=== PATIENT | male | born 1955 | race Caucasian/White ===

== ENCOUNTER → 2016-11-03 | Outpatient (CLI) | payer BC ==
--- NOTE | 2016-11-03 19:22 | PCVCIMAG ---
APPROVED REPORT Study performed: 11/03/2016 15:13:25 EXAM: Comprehensive 2D, Doppler, and color-flow Echocardiogram Status: routine Other Information Study Quality: Technically Limited Indications Hypertension/HDD Cardiomyopathy, 2D Dimensions IVSd: 9.79 (7-11mm)LVOT Diam: 25.30 (18-24mm) LVDd: 68.34 mm PWd: 10.04 (7-11mm)Ascending Ao: 38.92 (22-36mm) LVDs: 66.45 (25-40mm) Left Atrium: 38.20 (27-40mm) Aortic Root: 32.87 mm LV Single Plane 4CH: 45.38 % LV Single Plane 2CH: 39.62 %Vega's LVEF: 42.50 % Volumes Left Atrial Volume (Systole) Single Plane 4CH: 88.00 mLSingle Plane 2CH: 67.30 mL LA ESV Index: 34.00 mL/m2 Aortic Valve AoV Peak Derick.: 1.27 m/s AO Peak Gr.: 6.45 mmHgLVOT Max P.46 mmHg LVOT Max V: 0.93 m/s KADI Vmax: 3.68 cm2 Mitral Valve E/A Ratio: 0.6 MV Decel. Time: 468.26 ms MV E Max Derick.: 0.59 m/s MV A Derick.: 0.93 m/s MV PHT: 135.80 ms IVRT: 107.27 ms Left Ventricle The left ventricle is dilated. There is normal LV segmental wall motion. There is normal left ventricular wall thickness. Left ventricular systolic function is reduced. LVEF is 30- 35% Right Ventricle The right ventricle is normal size. The right ventricular systolic function is normal. Atria The left atrium size is normal. The right atrium size is normal. Aortic Valve The aortic valve is normal in structure. No aortic regurgitation is present. There is no aortic valvular stenosis. Mitral Valve The mitral valve is normal in structure. Trace to mild mitral regurgitation. No evidence of mitral valve stenosis. Tricuspid Valve The tricuspid valve is normal in structure. There is no tricuspid valve regurgitation noted. Pulmonic Valve The pulmonary valve is normal in structure. There is no pulmonic valvular regurgitation. Great Vessels The aortic root is normal in size. IVC is normal in size and collapses with >50% inspiration Pericardium There is no pericardial effusion. <Conclusion> Left ventricular systolic function is reduced. Left ventricular systolic function is reduced. The left ventricle is dilated. There is normal left ventricular wall thickness. Left ventricular systolic function is reduced. LVEF is 30- 35% The right ventricle is normal size. The left atrium size is normal. The aortic valve is normal in structure. Trace to mild mitral regurgitation. There is no tricuspid valve regurgitation noted. There is no pericardial effusion.
== END | disposition home or self-care (01) ==
LOC: PCVCIMAG 14:56
PROVIDERS: ATTEND Internal Medicine Cardiovascular Disease
DX: I34.0 Nonrheumatic mitral (valve) insufficiency (principal); I10 Essential (primary) hypertension; E78.5 Hyperlipidemia, unspecified; I42.9 Cardiomyopathy, unspecified; E78.4 Other hyperlipidemia; I51.7 Cardiomegaly; Z79.82 Long term (current) use of aspirin; Z79.899 Other long term (current) drug therapy; Z88.8 Allergy status to other drugs, medicaments and biological substances
CPT/HCPCS: 80061; 93005; 93306; G0463

== ENCOUNTER → 2016-11-17 | Outpatient (CLI) | payer BC ==
[~2016-11-17] MED LIST: DIAZEPAM 10 MG TABLET. ONE; HEPARIN SODIUM 5,000 UNIT/ML VIAL for PCVC. ONE; IODIXANOL 270 MG/ML 100 ML VIAL. ONE; IOHEXOL 350 MG/ML 100 ML VIAL. ONE; IOHEXOL 350 MG/ML 50 ML VIAL. ONE; IV NORMAL SALINE 1000ML BAG 1,000 ML ONE; LIDOCAINE 1% Multi-Dose 20 ML VIAL. ONE; MIDAZOLAM HCL/PF 2 MG/2 ML VIAL. ONE; fentaNYL PF VIAL 100 MCG/2 ML VIAL ONE; hydrALAZINE 20 MG/ML VIAL. ONE
--- NOTE | 2016-11-17 11:31 | PCVCINTER ---
EXAM: 1. AORTOGRAM AND BILATERAL ILIOFEMORAL ANGIOGRAPHY 2. BILATERAL RENAL ANGIOGRAPHY 3. PLACEMENT OF RIGHT COMMON FEMORAL VEIN SHEATH USING ULTRASOUND AND FLUOROSCOPIC GUIDANCE. INDICATION: Hypertension. Renal atherosclerosis. Peripheral arterial disease. PROCEDURE: Procedure and risks of the procedures listed above were discussed with the patient and consent obtained. Risks including but not limited to bleeding, infection, stroke, vascular injury, neurologic injury, embolization, allergic reactions, bowel ischemia requiring resection, and contrast-induced nephropathy requiring dialysis were discussed as appropriate and consent obtained. Patient was placed on the angiography table. IV conscious sedation was utilized with appropriate monitoring for 90 minutes. The right groin was prepped and draped in the normal sterile fashion. Ultrasound was used to interrogate the right groin and demonstrate the right common femoral artery. An ultrasound image was saved. Under ultrasound guidance a 21 gauge needle was used to gain access into the right common femoral artery and a 5F vascular sheath was placed. Next ultrasound guidance access was gated to the right common femoral vein and the 7 [place] sheath placed for the right heart catheter by Dr. Rangel later today. Catheter was placed into the suprarenal abdominal aorta and abdominal aortic angiogram performed. Catheter was placed into the distal abdominal aorta and bilateral iliofemoral angiography performed. Catheter was placed into the right renal arteries and right renal angiograms performed. Catheter was placed into the left renal arteries and left renal angiograms performed. Dr. Rangel joined the procedure and he performed coronary angiography. Please see his separate dictation for details. Catheters and wires removed. Sheath was removed and hemostasis obtained using the Mynx device. No immediate complications. FINDINGS: Aortogram: There is one right and one left renal artery. The infrarenal abdominal aorta shows minimal plaque without significant stenosis or aneurysm. Bilateral iliofemoral angiography: The right and left common and external iliac arteries are patent. Both internal iliac arteries are patent. The right and left common femoral and profunda femoral arteries are patent. The visualized portions of the upper superficial femoral arteries are also patent. Right renal artery: Minimal plaque proximal vessel does not cause significant stenosis. No branch vessel stenosis. Left renal artery: Mild plaque proximal vessel does not cause significant stenosis. No branch vessel stenosis. IMPRESSION: No renal artery stenosis. No aortic or iliofemoral stenosis. follow up LOC:[place] [id number]
== END | disposition home or self-care (01) ==
LOC: PCVCINTER 09:14
PROVIDERS: ATTEND Internal Medicine Cardiovascular Disease
DX: I70.0 Atherosclerosis of aorta (principal); I73.9 Peripheral vascular disease, unspecified; I10 Essential (primary) hypertension; I70.1 Atherosclerosis of renal artery
CPT/HCPCS: 36252; 75630; 76937; 93460; 99152; 99153; C1751; C1760; C1769; C1894; J2250; J3010; J7030; Q9967; J0360; J0690; J1644

== ENCOUNTER → 2017-02-19 | Outpatient (CLI) | payer BC ==
--- NOTE | 2017-02-19 14:11 | PCVCIMAG ---
APPROVED REPORT Study performed: 02/19/2017 09:33:31 EXAM: Comprehensive 2D, Doppler, and color-flow Echocardiogram Patient Location: Echo lab BSA: 2.32 HR: 45 bpmBP: 120/86 mmHg Rhythm: Bradycardia Other Information Study Quality: Adequate Risk Factors: Cardiac Risk Factors: HTN Indications Dyspnea Cardiomyopathy 2D Dimensions LVEF(%): 34.61 (>50%) IVSd: 10.97 (7-11mm) LVDd: 60.70 mm PWd: 10.76 (7-11mm) LVDs: 50.47 (25-40mm) Left Atrium: 45.58 (27-40mm) Aortic Root: 36.10 mm LV Single Plane 4CH: 37.49 % LV Single Plane 2CH: 42.80 %Vega's LVEF: 40.15 % Volumes Left Atrial Volume (Systole) Single Plane 4CH: 86.11 mLSingle Plane 2CH: 102.89 mL LA ESV Index: 41.00 mL/m2 Aortic Valve AoV Peak Derick.: 1.51 m/s AO Peak Gr.: 9.15 mmHgLVOT Max P.30 mmHg LVOT Max V: 1.15 m/s Mitral Valve E/A Ratio: 2.4 MV Decel. Time: 298.37 ms MV E Max Derick.: 0.61 m/s MV A Derick.: 0.25 m/s IVRT: 114.19 ms Pulmonary Valve PV Peak Derick.: 0.85 m/sPV Peak Gr.: 2.92 mmHg Pulmonary Vein P Vein S: 0.23 m/sP Vein A: 0.32 m/s P Vein D: 0.33 m/sP Vein A Dur.: 131.5 msec P Vein S/D Ratio: 0.70 Tricuspid Valve TR Peak Derick.: 2.48 m/s TR Peak Gr.: 24.63 mmHg Left Ventricle Mildly dilated left ventricle. There is normal LV segmental wall motion. There is normal left ventricular wall thickness. Left ventricular systolic function is mild to moderately decreased. LVEF is 35-40%. Grade I - abnormal relaxation pattern. Right Ventricle The right ventricle is normal size. The right ventricular systolic function is normal. Atria Left atrium is moderately dilated. The right atrium size is normal. Aortic Valve The aortic valve is normal in structure. No aortic regurgitation is present. There is no aortic valvular stenosis. Mitral Valve The mitral valve is normal in structure. Mild mitral regurgitation. No evidence of mitral valve stenosis. Tricuspid Valve The tricuspid valve is normal in structure. Mild tricuspid regurgitation with PAP of 32 mmHg. Pulmonic Valve The pulmonary valve is normal in structure. Mild pulmonic regurgitation. Great Vessels The aortic root is normal in size. IVC is normal in size and collapses with >50% inspiration Pericardium There is no pericardial effusion. <Conclusion> Mildly dilated left ventricle. Left ventricular systolic function is mild to moderately decreased. LVEF is 35-40%. Grade I - abnormal relaxation pattern. The right ventricle is normal size. Left atrium is moderately dilated. The right atrium size is normal. There is no aortic valvular stenosis. Mild mitral regurgitation. Mild tricuspid regurgitation with PAP of 32 mmHg. There is no pericardial effusion.
== END | disposition home or self-care (01) ==
LOC: PCVCIMAG 09:32
PROVIDERS: ATTEND Internal Medicine Cardiovascular Disease
DX: I08.1 Rheumatic disorders of both mitral and tricuspid valves (principal); I10 Essential (primary) hypertension; I42.8 Other cardiomyopathies; G47.33 Obstructive sleep apnea (adult) (pediatric); E78.00 Pure hypercholesterolemia, unspecified; R00.1 Bradycardia, unspecified; Z79.82 Long term (current) use of aspirin; Z79.899 Other long term (current) drug therapy; Z88.8 Allergy status to other drugs, medicaments and biological substances
CPT/HCPCS: 93306; G0463

== ENCOUNTER → 2017-11-22 | Outpatient (CLI) | payer BC | END | disposition home or self-care (01) | LOC: PCVCIMAG 16:13 | DX: I25.10 Atherosclerotic heart disease of native coronary artery without angina pectoris (principal); I42.9 Cardiomyopathy, unspecified; I10 Essential (primary) hypertension; E78.5 Hyperlipidemia, unspecified; I07.1 Rheumatic tricuspid insufficiency; I37.1 Nonrheumatic pulmonary valve insufficiency | CPT/HCPCS: 93306 ==

== ENCOUNTER → 2017-11-24 | Outpatient (CLI) | payer BC | END | disposition home or self-care (01) | LOC: PCVCIMAG 13:03 | DX: N13.30 Unspecified hydronephrosis (principal); N20.0 Calculus of kidney; N28.89 Other specified disorders of kidney and ureter; N28.1 Cyst of kidney, acquired | CPT/HCPCS: 76770 ==

== ENCOUNTER → 2018-04-06 | Outpatient (CLI) | payer BC | END | disposition home or self-care (01) | LOC: PCVCIMAG 13:51 | PROVIDERS: ATTEND Internal Medicine Cardiovascular Disease | DX: I35.8 Other nonrheumatic aortic valve disorders (principal); I51.7 Cardiomegaly; I42.9 Cardiomyopathy, unspecified; I10 Essential (primary) hypertension; E78.5 Hyperlipidemia, unspecified | CPT/HCPCS: 93308 ==

== ENCOUNTER → 2019-04-17 | Outpatient (CLI) | payer BC ==
--- NOTE | 2019-04-18 13:32 | PCVCIMAG ---
APPROVED REPORT Study performed: 04/17/2019 14:06:39 EXAM: Comprehensive 2D, Doppler, and color-flow Echocardiogram Patient Location: Echo lab Status: routine BSA: 2.36 HR: 49 bpmBP: 150/94 mmHg Rhythm: Bradycardia Other Information Study Quality: Adequate Risk Factors: Cardiac Risk Factors: HTN Indications CAD Nonischemic cardiomyopathy 2D Dimensions IVSd: 11.09 (7-11mm) LVDd: 56.55 mm PWd: 11.09 (7-11mm)Ascending Ao: 36.72 (22-36mm) LVDs: 48.97 (25-40mm) Left Atrium: 42.01 (27-40mm) Aortic Root: 36.05 mm LV Single Plane 4CH: 43.98 % LV Single Plane 2CH: 49.88 % Biplane EF: 46.6 % Volumes Left Atrial Volume (Systole) Single Plane 4CH: 100.67 mLSingle Plane 2CH: 107.29 mL LA ESV Index: 45.00 mL/m2 Aortic Valve AoV Peak Derick.: 1.42 m/s AO Peak Gr.: 8.09 mmHgLVOT Max P.67 mmHg LVOT Max V: 1.06 m/s Mitral Valve E/A Ratio: 2.4 MV Decel. Time: 235.50 ms MV E Max Derick.: 0.67 m/s MV A Derick.: 0.28 m/s IVRT: 166.09 ms Pulmonary Valve PV Peak Derick.: 0.83 m/sPV Peak Gr.: 2.73 mmHg Pulmonary Vein P Vein S: 0.37 m/sP Vein A: 0.29 m/s P Vein D: 0.48 m/sP Vein A Dur.: 117.6 msec P Vein S/D Ratio: 0.77 Tricuspid Valve TR Peak Derick.: 2.61 m/s TR Peak Gr.: 27.22 mmHg Left Ventricle Left ventricle is borderline dilated. There is normal LV segmental wall motion. There is normal left ventricular wall thickness. Left ventricular systolic function is mildly decreased globally. LVEF is 45-50%. Grade I - abnormal relaxation pattern. Right Ventricle The right ventricle is normal size. The right ventricular systolic function is normal. Atria Left atrium is moderately dilated. Right atrium is mildly dilated. Aortic Valve The aortic valve is normal in structure. No aortic regurgitation is present. There is no aortic valvular stenosis. Mitral Valve The mitral valve is normal in structure. Mild mitral regurgitation. No evidence of mitral valve stenosis. Tricuspid Valve The tricuspid valve is normal in structure. Mild tricuspid regurgitation with PAP of 37 mmHg. Pulmonic Valve The pulmonary valve is normal in structure. Mild pulmonic regurgitation. Great Vessels The aortic root is normal in size. IVC is dilated and collapses >50% with inspiration. Pericardium There is no pericardial effusion.
== END | disposition home or self-care (01) ==
LOC: PCVCIMAG 14:06
PROVIDERS: ATTEND Internal Medicine Cardiovascular Disease
DX: I08.8 Other rheumatic multiple valve diseases (principal); I25.10 Atherosclerotic heart disease of native coronary artery without angina pectoris; I42.9 Cardiomyopathy, unspecified; I10 Essential (primary) hypertension; E78.5 Hyperlipidemia, unspecified; G47.33 Obstructive sleep apnea (adult) (pediatric); Z72.89 Other problems related to lifestyle; Z88.8 Allergy status to other drugs, medicaments and biological substances; Z79.82 Long term (current) use of aspirin; Z79.899 Other long term (current) drug therapy
CPT/HCPCS: 93306